=== PATIENT | male | born 1985 | race Two or more races ===

== ENCOUNTER 2020-03-28 09:02 | Emergency (ER) | payer OTHER ==
[~2020-03-28] VITALS: Ht 167.6 cm; Wt 88.5 kg
[2020-03-28] MEDS ORDERED: ZITHROMAX500 MG PO (12:45)
== END 2020-03-28 12:50 | disposition home or self-care (01) ==
LOC: ER 09:02
DX: B33.8 Other specified viral diseases (principal); B96.0 Mycoplasma pneumoniae [M. pneumoniae] as the cause of diseases classified elsewhere; J11.1 Influenza due to unidentified influenza virus with other respiratory manifestations

== ENCOUNTER 2021-02-27 09:00 | Outpatient (CLI) | payer OTHER ==
[~2021-02-27 09:00] MED LIST: ZITHROMAX500 MG PO
== END 2021-02-27 09:30 | disposition home or self-care (01) ==
LOC: PPH VACUNA 09:00
PROVIDERS: ATTEND Emergency Medicine Pediatric Emergency Medicine
DX: Z23 Encounter for immunization (principal)